=== PATIENT | female | born 1940 | race Hispanic/Latino ===

== ENCOUNTER 2019-04-01 18:58 | Emergency (ER) | payer MEDICARE ==
[~2019-04-01] VITALS: Ht 162.6 cm; Wt 57.2 kg
--- OUTSIDE RECORDS SUMMARY | 2019-04-01 19:00 | XMS REPORT ---
Author Author [facility] Address Unknown Phone Unavailable Care Team Providers Care Insurance Administrative Assistant Name Role Phone SCOOTER GIBSON Unavailable Unavailable RUDDY SMITH Unavailable Unavailable Problems This patient has no known problems. Allergies, Adverse Reactions, Alerts This patient has no known allergies or adverse reactions. Medications This patient has no known medications. Results Test Description Test Time Test Comments Text Results Atomic Results Result Comments POCT-GLUCOSE METER 2019-01-12 12:25:00 POC-GLUCOSE METER (BEAKER) (test ffaq=7483) 93 mg/dL 70-[address] [facility] [address] [facility] [address] GLUCOSE-STAT [id number] 11:33:00* Test Item Value Reference Range Comments GLUCOSE RANDOM (BEAKER) (test hyse=978) 73 mg/dL 70-110 POTASSIUM-STAT [id number] 11:33:00* Test Item Value Reference Range Comments POTASSIUM (BEAKER) (test wcag=406) 3.6 meq/L 3.6-5.5 HGB/HCT (H&H) - STAT [id number] 11:33:00* Test Item Value Reference Range Comments HEMOGLOBIN (BEAKER) (test kbxb=152) 12.2 g/dL 12.0-15.0 HEMATOCRIT (BEAKER) (test dzbh=239) 36.0 % 36.0-45.0 GLUCOSE-STAT [id number] 09:23:00* Test Item Value Reference Range Comments GLUCOSE RANDOM (BEAKER) (test vbpq=352) 83 mg/dL 70-110 POTASSIUM-STAT [id number] 09:23:00* Test Item Value Reference Range Comments POTASSIUM (BEAKER) (test vtmp=813) 4.7 meq/L 3.6-5.5 POTASSIUM-STAT [id number] 09:13:00* Test Item Value Reference Range Comments POTASSIUM (BEAKER) (test llsu=707) 8.8 meq/L 3.6-5.5 GLUCOSE-STAT [id number] 09:10:00* Test Item Value Reference Range Comments GLUCOSE RANDOM (BEAKER) (test vsve=611) 77 mg/dL 70-110 HGB/HCT (H&H) - STAT [id number] 09:10:00* Test Item Value Reference Range Comments HEMOGLOBIN (BEAKER) (test gsfn=094) 12.1 g/dL 12.0-15.0 HEMATOCRIT (BEAKER) (test glle=706) 36.0 % 36.0-45.0 ANG, AV-SHUNT, CATH INTRO WITH [id number] 15:45:00Reason for Exam:->End stage renal disease [N18.6]FINAL REPORT AV fistula evaluation History: Renal failure. Modality: Fluoroscopy. Cash Management Specialist: Kit Tyson MD. Painting Manager: None. SEDATION: None. Approach: Left upper extremity AV fistula. Estimated blood loss: < 5 cc. Specimen: None. Reference air kerma (Ka, r): 18.3 mGy Fluoroscopy time: 1.9 min Technique: Informed written consent was obtained. Discussion of risks, benefits, and alternatives were made with the patient. The patient expressed understanding and agreed to proceed. A universal timeout was performed prior to starting the procedure. All elements maximal sterile barrier technique was utilized for this procedure, including utilization of sterile scrub solution for skin prep, a large sterile sheet to cover the areas of the patient that were not prepped, and hand hygiene, mask, head covering, and sterile gown for performing radiologist and scrub technologist. 2% lidocaine was given locally for anesthesia. Access was gained in a single point of the arterial limb of the graft using an 18-gauge singlewall needle and Tan wire. A 4 American multisidehole catheter was placed for DSA runs of the right arm and central venous system. The catheter was removed and hemostasis achieved using 2-0 chromic purse-string suture. There were no immediate complications. FINDINGS: 1. The left upper extremity AV is patent.2. Arterial anastomosis is patent.3. Patent left-sided central veins. IMPRESSION: Uncomplicated left upper extremity AV fistula evaluation using fluoroscopic guidance. Patent AV fistula and outflow veins. Outflow is seen within both the basilic and brachial veins in the upper arm. Signed: Kit Tyson MDReport Verified Date/Time: 02/19/2018 15:45:55 Reading Location: [facility] B1 P048 Angio Body Reading Room , LEARNING TECHNOLOGIST IN OR/30 MINUTE [id number] 18:27:00Reason for exam:->ORIF Right WristFLUOROSCOPIC UNIT UTILIZED-NO INTERPRETATION REQUESTED. -POTASSIUM 2017-05-16 10:13:00* Test Item Value Reference Range Comments POC-POTASSIUM (BEAKER) (test kmhd=0658) 4.2 meq/L 3.6-5.[address] 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 FINDINGS:There is a mildly comminuted fracture of the distal radius with dorsal displacement of the distal fracture fragments. There is associated soft tissue swelling. No dislocation. Bones are normal in density. No joint space narrowing. No bone ero dana or soft tissue nodule seen. No radiodense foreign body or subcutaneous emph ysema. IMPRESSION:Mildly comminuted fracture of the distal radius. 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 FINDINGS:There is a mildly comminuted and impacted fracture of distal radius and a fracture of the ulnar styloid. There is dorsal displacement of the distal fracture fragment The radiocarpal joint is well aligned. Bones are osteopenic. There are marked degenerative changes of the first metacarpal phalangeal joint with near complete dislocation of the joint with palmar displacement of the proximal phalanx. No bone erosion or soft tissue nodule seen. No radiodense foreign body or subcutaneous emphysema. IMPRESSION:Comminuted and impacted fracture of the distal radius as well as fracture of the ulnar styloid. Degenerative changes of the first metacarpal phalangeal joint. Signed: Oxana Kruegereport Verified [place] te/Time: 05/07/2017 13:02:04 Reading Location: [facility] Radiology Reading Room E lectronically signed by: OXANA KRUEGER on 05/07/2017 01:02 PM
--- OUTSIDE RECORDS SUMMARY | 2019-04-01 19:00 | XMS REPORT | Clinical Summary ---
Author Author [facility] Address Unknown Phone Unavailable Care Team Providers Care Explosive Technician Name Role Phone Kar Bose MD PCP Unavailable Allergies No Known Allergies Medications End Date Status Medication Sig Dispensed Refills Start Date Active atorvastatin (LIPITOR) 40 Take 40 mg by 0 MG tablet mouth nightly . Active omeprazole (PRILOSEC) 20 Take 40 mg by 0 MG capsule mouth daily . Active dorzolamide (TRUSOPT) 2 % Place 1 drop 0 ophthalmic solution into both eyes 2 (two) times daily. Active aspirin 325 MG tablet Take 325 mg 0 by mouth daily. Active metoprolol (LOPRESSOR) 50 Take 3 180 tablet 0 02/15/201 MG tablet tablets (150 5 mg total) by mouth 2 (two) times daily. Active amLODIPine (NORVASC) 5 MG TAKE ONE 0 11/20/201 tablet TABLET BY 7 MOUTH TWICE A DAY Active amiodarone (PACERONE) 200 Take 200 mg 0 11/28/201 MG tablet by mouth 7 daily . Active lisinopril Take 10 mg by 0 (PRINIVIL,ZESTRIL) 10 MG mouth 2 (two) tablet times daily. Active alendronate (FOSAMAX) 70 Take 70 mg by 0 09/15/201 MG tablet mouth once a 9 week. Active cholecalciferol, vitamin Take 1 tablet 0 D3, (D3-2000 ORAL) by mouth daily. Active Problems Problem Noted Date Cardiomyopathy LVEF 30-34% 02-07-2015 Echo 02/15/2015 Pulmonary artery hypertension 45-50 mmHg 02-07-2015 Echo 02/15/2015 Abnormal nuclear cardiac imaging test 02-14-2015 02/15/2015 Chest pain 02/07/2015 Shortness of breath 02/07/2015 Atrial fibrillation with rapid ventricular response 02/07/2015 Hypertension 02/07/2015 Fluid overload 02/01/2015 ESRD (end stage renal disease) 10/29/2013 Acute on chronic kidney failure 08/25/2013 Coagulopathy 08/24/2013 Hematoma 08/24/2013 INR (international normal ratio) abnormal 08/24/2013 Fall against object 08/24/2013 Atrial fibrillation 08/24/2013 Medial orbital wall fracture 08/24/2013 Encounters Care Team Description Date Type Specialty Claus Nova MD Postoperative state (Primary Dx) 01/28/2019 Office Visit Cardiology Efrain Gross MD 01/12/2019 Anesthesia Event Claus Nova MD REVISION/LIGATION,A-V FISTULA 01/12/2019 Surgery Claus Nova MD 01/12/2019 Hospital Encounter Claus Nova MD Abnormal nuclear cardiac imaging test 01/05/2019 Hospital Encounter Claus Nova MD Aneurysm of arteriovenous dialysis fistula, initial encounter (HCC) (Primary Dx) 01/05/2019 Office Visit Cardiology 01/05/2019 Orders Only General Internal Medicine Claus Nova MD 12/30/2018 Outside Orders Cardiology after 03/31/2018 Family History Medical History Relation Name Comments Asthma Sister Relation Name Status Comments Father Mother Sister Social History Date Tobacco Use Types Packs/Day Years Used Quit: 08/24/1960 Former Smoker Cigarettes 3 Smokeless Tobacco: Never Used Comments: Smoked 3 cigarettes a day Alcohol Use Drinks/Week oz/Week Comments No Sex Assigned at Date Recorded Not on file Industry Job Start Date Occupation Not on file Not on file Not on file Travel End Travel History Travel Start No recent travel history available. Last Filed Vital Signs Time Taken Vital Sign Reading 01/28/2019 7:24 AM CDT Blood Pressure 149/67 01/28/2019 7:24 AM CDT Pulse 60 01/28/2019 7:24 AM CDT Temperature 37 C (98.6 F) 01/28/2019 7:24 AM CDT Respiratory Rate 18 01/28/2019 7:24 AM CDT Oxygen Saturation 100% - Inhaled Oxygen - Concentration 01/28/2019 7:24 AM CDT Weight 56.6 kg (124 lb 11.2 oz) 01/28/2019 7:24 AM CDT Height 157.5 cm (5' 2") 01/28/2019 7:24 AM CDT Body Mass Index 22.81 Plan of Treatment Not on file Implants Device Identifier Shelf Expiration Date Model / Serial / Lot Implanted Type Area Manufactur er [id number] / [id number] / Plt Acu-Loc2 Vdr Khang Rl - Fracture/F Right: Wrist AcuMed [id number] ixation Implanted: Qty: 1 on 05/16/2017 by Avery Hurd MD [id number] / / Scr Non Memo 3.5x10mm -0256 - Fracture/F Right: Wrist AcuMed [id number] ixation Implanted: Qty: 3 on 05/16/2017 by Avery Hurd MD CO-[id number] / / Scr Manuel Lock 2.3x22mm Co-T2322 - Fracture/F Right: Wrist AcuMed [id number] ixation Implanted: Qty: 1 on 05/16/2017 by Avery Hurd MD CO-[id number] / / Scr Manuel Lock 2.3x18mm Co-T2318 - Fracture/F Right: Wrist AcuMed [id number] ixation Implanted: Qty: 1 on 05/16/2017 by Aveyr Hurd MD CO-[id number] / / Scr Manuel Lock 2.3x20mm Co-T2320 - Fracture/F Right: Wrist AcuMed [id number] ixation Implanted: Qty: 2 on 05/16/2017 by Avery Hurd MD Procedures Comments Procedure Name Priority Date/Time Associated Diagnosis POCT-GLUCOSE METER Routine 01/12/2019 12:20 PM CDT HGB/HCT (H&H) - STAT LAB STAT 01/12/2019 11:29 AM CDT GLUCOSE-STAT LAB STAT 01/12/2019 11:29 AM CDT POTASSIUM-STAT LAB STAT 01/12/2019 11:29 AM CDT REVISION/LIGATION,A-V 01/12/2019 ESRD (end stage renal FISTULA 9:30 AM CDT disease) ([facility]) Case Notes 1 HR GLUCOSE-STAT LAB Routine 01/12/2019 9:18 AM CDT POTASSIUM-STAT LAB Routine 01/12/2019 9:18 AM CDT HGB/HCT (H&H) - STAT LAB Routine 01/12/2019 9:03 AM CDT GLUCOSE-STAT LAB Routine 01/12/2019 9:03 AM CDT POTASSIUM-STAT LAB Routine 01/12/2019 9:03 AM CDT TRANSFUSION SERVICE 01/06/2019 REPORT - SCAN 6:14 PM CDT TYPE AND SCREEN, Routine 01/05/2019 AUTOMATED 12:25 PM CDT ECG 12-LEAD Routine 01/05/2019 12:11 PM CDT ECG 12-LEAD Routine 01/05/2019 12:11 PM CDT Procedure Note - Interface, External Ris In - 01/05/2019 2:28 PM CDT Ventricula r Rate 54 BPM Atrial Rate 54 BPM P-R Interval 170 ms QRS Duration 108 ms Q-T Interval 524 ms QTC Calculatio n(Bazett) 496 ms P [place] 84 degrees R [place] 22 degrees T [place] 51 degrees Sinus bradycardi a Prolonged QT Abnormal ECG When compared with ECG of 5 05:00, Sinus rhythm has replaced Atrial fibrillati on Vent. rate has decreased BY 49 BPM Nonspecifi c T wave abnormalit y no longer evident in Anterior leads after 03/31/2018 Results * POC-Glucose meter (01/12/2019 12:20 PM CDT) POC-Glucose Meter 93Comment: TESTED AT [facility] 70 - 110 mg/dL [address] [address] [facility] Specimen Blood Performing Organization Address City/State/Zipcode Phone Number [place] [phone] [place] [address] [facility] * Potassium-Stat Lab (01/12/2019 11:29 AM CDT) Only the most recent of 3 results within the time period is included. Potassium 3.6 3.6 - 5.5 meq/L [facility] Specimen Blood, Arterial Performing Organization Address [facility] Phone Number [address] [address] [phone] * Glucose-Stat Lab (01/12/2019 11:29 AM CDT) Only the most recent of 3 results within the time period is included. Glucose 73 70 - 110 mg/dL [facility] Specimen Blood, Arterial Performing Organization Address City/[facility] Phone Number [address] [address] [phone] * HGB/HCT (H&H)-Stat Lab (01/12/2019 11:29 AM CDT) Only the most recent of 2 results within the time period is included. Hemoglobin 12.2 12.0 - 15.0 g/dL [facility] Hematocrit 36.0 36.0 - 45.0 % [facility] Specimen Blood, Arterial Performing Organization Address [facility] Phone Number [address] [address] [phone] [place] [address] * TRANSFUSION SERVICE REPORT - SCAN (01/06/2019 6:14 PM CDT) Narrative Performed At * Type and screen, automated (01/05/2019 12:25 PM CDT) ABO/RH AUTOMATED (BEAKER) B POSITIVE [facility] Ab Scrn NEGATIVE [facility] Specimen Blood Performing Organization Address [facility] Phone Number [address] [address] [phone] [place] [address] * ECG 12 lead (01/05/2019 12:11 PM CDT) Specimen Narrative Performed At Ventricular Rate 54 BPM GE MUSE Atrial Rate 54 BPM P-R Interval 170 ms QRS Duration 108 ms Q-T Interval 524 ms QTC Calculation(Bazett) 496 ms P [place] 84 degrees R Belmar 22 degrees T [place] 51 degrees Sinus bradycardia Prolonged QT Abnormal ECG When compared with ECG of 07-FEB-2015 05:00, Sinus rhythm has replaced Atrial fibrillation Vent. rate has decreased BY49 BPM Nonspecific T wave abnormality no longer evident in Anterior leads Confirmed by MD OATES YOCHAI ([id number]) on 01/06/2019 6:16:46 AM Procedure Note Interface, External Ris In - 01/06/2019 6:17 AM CDT Ventricular Rate 54 BPM Atrial Rate 54 BPM P-R Interval 170 ms QRS Duration 108 ms Q-T Interval 524 ms QTC Calculation(Bazett) 496 ms P [place] 84 degrees R Bel[place] 22 degrees T [place] 51 degrees Sinus bradycardia Prolonged QT Abnormal ECG When compared with ECG of 07-FEB-2015 05:00, Sinus rhythm has replaced Atrial fibrillation Vent. rate has decreased BY 49 BPM Nonspecific T wave abnormality no longer evident in Anterior leads Confirmed by MD OATES YOCHAI ([id number]) on 01/06/2019 6:16:46 AM Performing Organization Address City/State/Zipcode Phone Number GE MUSE after 03/31/2018 Insurance Payer Benefit Subscriber ID Type Phone Address Plan / Group [facility] xxxxxxxxxxx MEDICARE ADV Advance Directives For more information, please contact: [address] [address] Date Inactivated Comments Code Status Date Activated 01/12/2019 3:01 PM Full Code 01/12/2019 8:21 AM This code status was determined by: Patient 02/15/2015 4:19 PM Full Code 02/07/2015 4:25 AM This code status was determined by: Patient 02/01/2015 3:42 PM Full Code 02/01/2015 9:20 AM This code status was determined by: Patient 10/29/2013 8:21 PM All possible means of support, including: cardiac massage, mechanical ventilation, and defibrillation will be used to support life. Code ONE 10/29/2013 2:38 PM 10/29/2013 2:38 PM All possible means of support including;cardiac massage, mechanical ventilation, and defibrillation will be used to support life. Code ONE 10/29/2013 6:48 AM
--- NOTE | 2019-04-01 19:56 | Diagnostic Imaging Report ---
LEFT WRIST - 3 Images HISTORY: Injury, fall COMPARISON: None available. FINDINGS: Bones: Diffusely decreased mineralization of the osseous structures limits bone detail. Mildly impacted comminuted intra-articular fracture of the distal radius with marked dorsal angulation of the main fracture fragments. Mildly displaced oblique fracture through the base of the ulnar styloid process. Joints: Severe degenerative changes of the first carpometacarpal joint. Soft tissues: Nonspecific soft tissue swelling. Atherosclerotic calcifications and metallic surgical clips within the distal forearm. IMPRESSION: 1. Acute, comminuted, intra-articular fracture of the distal radius. 2. Acute fracture of the ulnar styloid process. 3. Diffuse osseous demineralization. Signed by: Dr. Renaldo Swain D.O., M.M.M. on 04/01/2019 7:53 PM
[2019-04-01] MEDS ORDERED: TRAMADOL HCL 50 MG TAB ONE (20:25)
[2019-04-02] MEDS ORDERED: TRAMADOL HCL 50 MG TAB PO ONE
== END 2019-04-01 21:00 | disposition home or self-care (01) ==
LOC: FSED 18:58
DX: S52.572A Other intraarticular fracture of lower end of left radius, initial encounter for closed fracture (principal); S52.612A Displaced fracture of left ulna styloid process, initial encounter for closed fracture; W01.0XXA Fall on same level from slipping, tripping and stumbling without subsequent striking against object, initial encounter; Y93.01 Activity, walking, marching and hiking; Y92.007 Garden or yard of unspecified non-institutional (private) residence as the place of occurrence of the external cause; I12.0 Hypertensive chronic kidney disease with stage 5 chronic kidney disease or end stage renal disease; N18.6 End stage renal disease; Z99.2 Dependence on renal dialysis; E78.5 Hyperlipidemia, unspecified
CPT/HCPCS: 99283